=== PATIENT | female | born 1985 | race Caucasian/White ===

== ENCOUNTER 2016-08-29 07:04 | Day surgery (SDC) | payer BC ==
[2016-08-29] VITALS (13 sets, daily range): BP systolic 103–142; BP diastolic 55–85; PULSE 61–90; RESP 12–25; TEMP 97.2–98.2; O2SAT 94–100; Ht 160 cm; Wt 109.9 kg
[~2016-08-29] VITALS: Ht 160 cm; Wt 109.9 kg
[~2016-08-29 07:04] MED LIST: ALBU8.5H INH; LR 1,000 ML IV SCH; PRED20TA PO; TOPI100T43 PO; [UNRECOGNIZED DRUG - CODE] PO
--- OUTSIDE RECORDS SUMMARY | 2016-08-29 07:27 | XMS REPORT ---
Author Author Erik Wilcox Organization [employer] Address Unknown Phone Unavailable Care Team Providers Care Registration Rep Name Role Phone Erik Wilcox CP Unavailable Allergies, Adverse Reactions, Alerts Substance Reaction Event Type Verapamil HCl hives Drug Allergy Methotrexate hives Drug Allergy Lortab hives Drug Allergy Imitrex rash Drug Allergy Azithromycin hives Drug Allergy shell fish hives Non Drug Allergy Problems Problem Type Condition Code Onset Dates Condition Status Problem CARE LEVEL 4 CARE4 Active Problem (anxiety disorder, NOS) Anxiety state, unspecified 300.00 Active Problem () state, incidental (also ) V22.2 Active Assessment Sprain and strain of unspecified site of back 847.9 Active Problem Ankylosing spondylitis 720.0 Active Problem Cellulitis and abscess of buttock 682.5 Active Problem Moderate persistent asthma with acute exacerbation J45.41 Active Problem Unqualified visual loss, one eye 369.8 Active Problem Asthma, unspecified with status asthmaticus 493.91 Active Problem External hemorrhoids without mention of complication 455.3 Active Problem (GERD acid reflux) Esophageal reflux 530.81 Active Medications Medication Code System Code Instructions Start Date End Date Status Dosage Pro Air HFA [facility] 56458-[address]48 108 mg inhalation q 4-6 hrs prn Jan 17, 2016 2 puffs Proventil HFA [facility] [address]-47 108MCG/A Inhalation every 4 hrs prn 2 puffs as needed Triamcinolone Acetonide [facility] [address]-80 0.1 % Externally Twice a day September 29, 2015 1 application to affected area Benadryl [facility] [address]-18 25 MG Orally qhs prn 1 tablet Tylenol [facility] [address]-30 500 MG Orally every 6 hrs prn 1 tab(s) Topamax [facility] [address]-82 50 mg Orally Twice a day 1.5 tablet Flexeril [facility] [address]-61 10 mg Orally qhs as needed for spasm Feb 27, 2016 Mar 13, 2016 1 tablet HydrOXYzine HCl [facility] [address]-07 50 MG Orally q6 hours PRN Anxiety Jan 1-2 tablets Procedures Procedure Coding System Code Date Office visit estab lev 3 CPT-4 51319 Feb 27, 2016 Vital Signs Date/Time: Feb 27, 2016 Height 65 in Weight 225.0 lbs Temperature 98.0 F Cardiac Monitoring Heart Rate 67 /min Blood Pressure Diastolic 73 mm Hg Blood Pressure Systolic 108 mm Hg BMI 37.44 Index Results No Known Results Summary Purpose [employer] Submission
--- OUTSIDE RECORDS SUMMARY | 2016-08-29 07:30 | XMS REPORT ---
Author Frank Meyer Organization [employer] Address Unknown Phone Unavailable Care Team Providers Care [employer] Technology Teacher Name Role Phone Frank Varma CP Unavailable Allergies No Known Allergies Problems Problem Type Condition Code Onset Dates Condition Status Problem () state, incidental (also ) V22.2 Active Problem CARE LEVEL 4 CARE4 Active Problem Cellulitis and abscess of buttock 682.5 Active Problem External hemorrhoids without mention of complication 455.3 Active Problem Ankylosing spondylitis 720.0 Active Problem Asthma, unspecified with status asthmaticus 493.91 Active Problem (anxiety disorder, NOS) Anxiety state, unspecified 300.00 Active Problem (GERD acid reflux) Esophageal reflux 530.81 Active Problem Unqualified visual loss, one eye 369.8 Active Medications No Known Medications Results No Known Results Summary Purpose [employer] Submission
--- OUTSIDE RECORDS SUMMARY | 2016-08-29 07:31 | XMS REPORT | Referral Summary ---
Author Author [facility] Organization [facility] Address Unknown Phone Unavailable Care Team Providers Care Anthropology And Archeology Instructor Name Role Phone Naveen Cruz Primary Care Physician [phone] Encounter [facility] [id number] Date(s): 04/25/16 - 04/25/[address] [facility] [address] [facility] [address] [place], [place] [address] Discharge Diagnosis: Migraine with aura Discharge Diagnosis: Nausea Discharge Disposition: 01-Home or Self Care Attending Physician: Ernie Edwards MD Admitting Physician: Ernie Edwards MD Referring Physician: Ernie Edwards MD Vital Signs Most recent to 1 oldest [Reference Range]: Peripheral Pulse 60 bpm Rate [60-100 bpm] (04/25/16 8:08 AM) Blood Pressure 118/74 mmHg [90-140/60-90 mmHg] (04/25/16 8:08 AM) Problem List No data available for this section Allergies, Adverse Reactions, Alerts Substance Reaction Severity Status Azithromycin 5 Day Dose Active Pack1 Fish2 Active Lortab Active methotrexate Adverse Reaction Active 1HIVES 2SHELL FISH: HIVES, CANT BREATHE Medications albuterol CFC free 90 mcg/inh inhalation aerosol puffs, Inhalation, QID, 0 Refill(s) Start Date: 11/22/15 Status: Ordered Benadryl 0 Refill(s) Start Date: 11/22/15 Status: Ordered predniSONE Oral, Daily, 80mg, 0 Refill(s) Start Date: 04/25/16 Status: Ordered topiramate 100 mg oral tablet 100 mg 1 tabs, Oral, BID, # 180 tabs, 0 Refill(s), Pharmacy: [id number], 1 tabs Oral BID Start Date: 04/25/16 Status: Ordered Results No data available for this section Immunizations No data available for this section Procedures Procedure Date Related Diagnosis Body Site Acute cataract H/O tubal ligation Social History Social History Type Response Smoking Status Never smoker Assessment and Plan Extracted from: Title: Neurology follow up Author: Ernie Edwards MD Date: 04/25/16 Assessment/Plan 1. Migraine with aura: Increase Topamax to 100 mg twice a day Start Relpax as needed as an abortive agent She did have an allergic reaction to Imitrex with hives but was not allergic to Zomig. Does not appear to be a class effect. She knows to take Benadryl in case of developing hives. 2. Nausea: Continue Compazine 10mg TID PRN for nausea Time spent with the patient: 20min with greater than 50% of the office visit spent in counseling the patient, coordination of care, reviewing diagnostic studies, treatment options, follow up plan, and answering the patient's questions. Return to clinic in5 months Addendum Rizatriptan was preferred according to her plan. Rizatriptan will be used in stead of by heidy Edwards (Relpax) Ernie NOEL on April 25, 2016 08:30:42 [employer] PSYCHOLOGIST
--- OUTSIDE RECORDS SUMMARY | 2016-08-29 07:32 | XMS REPORT ---
Author Author [facility] - Organization Unknown Address Unknown Phone Unavailable Allergies, Adverse Reactions, Alerts * IV Contrast causes unknown. * Zithromax causes Urticaria (hives). * Iodine causes Adverse Reaction. * Methotrexate causes Adverse Reaction. * No Latex Allergy. * No Known Food Allergies. Problems No relevant problems exist. Procedures No relevant procedures performed. Medication Medication reconciliation has not been performed. Results LAB--CHEMISTRY from 03/21/2013 2:35 AMAnion Gap 6 (3-20 ) Albumin 3.8 g/dL (3.5-4.8 g/dL) Alkaline Phosphatase 61 U/L (26-104 U/L) ALT (SGPT) 36 U/L (14-54 U/L) AST (SGOT) 26 U/L (15-41 U/L) Bilirubin Total 0.6 mg/dL (0.2-1.2 mg/dL) BUN 20 mg/dL (4-20 mg/dL) Calcium 9.1 mg/dL (8.6-10.0 mg/dL) Chloride 107 mEq/L (99-109 mEq/L) CO2 24 mEq/L (22-32 mEq/L) Creatinine 0.92 mg/dL (0.44-1.03 mg/dL) eGFR >60 (>60- ) Globulin 2.6 g/dL (1.9-4.3 g/dL) Glucose 113 mg/dL H (70-100 mg/dL) Potassium 3.9 mEq/L (3.6-5.1 mEq/L) Sodium 137 mEq/L (136-144 mEq/L) Protein 6.4 g/dL (6.1-7.9 g/dL)
--- OUTSIDE RECORDS SUMMARY | 2016-08-29 07:32 | XMS REPORT ---
Author Frank Meyer Organization [employer] Address Unknown Phone Unavailable Care Team Providers Care Import Clerk Name Role Phone Frank Varma CP Unavailable Allergies No Known Allergies Problems Problem Type Condition Code Onset Dates Condition Status Assessment Intractable episodic cluster headache G44.011 Active Problem () state, incidental (also ) [...] visual loss, one eye 369.8 Active Medications Medication Code System Code Instructions Start Date End Date Status Dosage Flonase [facility] [address]-63 50 MCG/ACT Nasally Once a day Jan 14, 2015 1 spray in each nostril HydrOXYzine HCl [facility] [address]-11 50 MG Orally q6 hours PRN Anxiety Jan 1-2 tablets Zolmitriptan [facility] [address]-56 2.5 MG Nasally for acute headaches, may repeat dose x1 after 2 hr Jun 21, 2015 1 spray as needed Proventil HFA [facility] [address]-81 108 (90 Base) MCG/ACT Inhalation every 4 hrs Feb 03, 2015 2 puffs as needed Verapamil HCl [facility] [address]-38 80 mg Orally Three times a day Jun 23, 2015 1 tablet Benadryl [facility] [address]-26 25 mg PRN 1 tablet Results No Known Results Summary Purpose [employer] Submission
[2016-08-29] MEDS ORDERED: DIFL5DRO IO (07:58)
[2016-08-29] MEDS ORDERED: CEFAZOLIN 1 GRAM INJECTION IV ONE (08:00)
--- NOTE | 2016-08-29 08:35 | ANESPREOP ---
Anesthesia Record Date and Time DATE: 08/29/16 TIME: 08:33 Pre-Op Diagnosis BCC Proposed Surgical Procedure mohs- left side of nose NPO since: mIDNIGHT Allergies: Coded Allergies: acetaminophen (Verified Allergy, Unknown, hives, 08/29/16) hydrocodone (Verified Allergy, Unknown, hives, 08/29/16) methotrexate (Verified Allergy, Unknown, hives, 08/29/16) shellfish derived (Verified Allergy, Unknown, hives, 08/29/16) verapamil (Unverified Allergy, Unknown, 08/29/16) Ht/Wt/BMI Height: 5 ' 3.00 " Weight: 109.900 kg BMI: 42.9 kg/m2 Vital Signs Date Time Temp Pulse Resp B/P Pulse Ox O2 Delivery O2 Flow Rate FiO2 08/29/16 07:38 98.2 61 14 123/79 98 Medications Inpatient Medications Current Medications Medications (Trade) Dose Ordered Sig/Alberto Start Time Stop Time Status Last Admin Dose Admin Lactated Ringer's (Lactated Ringers) 1,000 ml @ 50 mls/hr Q20H 08/29/16 07:00 Fentanyl (Fentanyl) 25-50 MCG IV PUSH PRN NOT... PRN PRN 08/29/16 09:00 Midazolam HCl (Versed) 0.5-3 MG IV PUSH EVERY... Q10M PRN 08/29/16 09:00 Albuterol Sulfate (Proair HFA 90 mcg/actuation) 8.5 Gm Hfa.aer.ad, 1 PUFF INH DAILY PRN for ASTHMA, (Reported) Last Taken: on 08/28/16 0715 Cyclosporine (Cyclosporine) 100 Mg Capsule, 1 CAP PO BID, (Reported) Last Taken: on 08/28/16 2330 Difluprednate (Durezol) 5 Ml Drops, 1 DROP IO QID, (Reported) Last Taken: on 08/29/16 0530 Prednisone (Prednisone) 20 Mg Tablet, 1 TAB PO DAILY, (Reported) Last Taken: on 08/28/16 0800 Topiramate (Topiramate) 100 Mg Tablet, 1 TAB PO BID, (Reported) Last Taken: on 08/28/16 2330 Currently on Beta Thom: No Medical/Surgical History Anesthesia PMH: Reports: Arthritis, Asthma, Cancer (SKIN-NOSE ), Obesity, Pneumonia (HX. ), Denies: Anesthesia Reactions (NO AIRWAY ISSUES ), Clotting Problems, Malignant Hyperthermia, Renal Disease, Sleep Apnea Smoking Status: Never smoker Has pt. smoked today?: No Use Chewing Tobacco?: No Second Hand Exposure: No Substance Use Type: does not use Alcohol Intake: none HX of Last Menstrual Period: AUGUST 2016 Past Surgical History Orthopedic Surgeries: Yes - R KNEE SCOPE Abdominal Surgeries: Yes - SAURABH Genitourinary Surgeries: Cardiac Surgeries: Endocrine Surgeries: Reproductive Surgeries: Yes - TUBAL Neurological Surgeries: Ear Surgeries: Nose Surgeries: Throat Surgeries: Other Surgeries: Yes - L CATARACT, LEFT EYE LASER Anesthesia Adverse Reactions: FOUND none Family Hx of Anesthesia Advers: none Hx of Motion Sickness: No Pertinent Findings Test 08/29/16 07:51 Urine Test Negative (NEGATIVE) EKG Rhythm: Sinus Rhythm Physical Exam Respiratory: Lungs clear Cardiovascular: FOUND Regular rate, rhythm Airway Assessment Mallampati Score: II TMD: 3 Fingerbreadths Neck Extension: Good Overall Assessment: No Airway Concerns ASA: 2 Plan Anesthesia Plan: MAC Discussion Discussed risks/options/alternatives of anesthesia and questions answered. Patient consents. Nursing pain assessment noted. Attestation Statement Prior to the delivery of any anesthetic medication, I examined the patient, developed the plan, obtained the patient's consent and discussed the risk and benefits of the procedure with the patient/guardian. CABRERA BARAHONA CRNA Aug 29, 2016 08:34
[2016-08-29] MEDS ORDERED: MIDAZOLAM 5mg/5ml INJECTION IV PRN (09:00)
[2016-08-29] MEDS ORDERED: FENTANYL 100mcg/2ml INJECTION IV PRN (09:00)
[2016-08-29] MEDS ORDERED: MIDAZOLAM 2mg/2ml INJECTION ONE (09:39)
[2016-08-29] MEDS ORDERED: PROPOFOL 200mg 20 ML IV ONE (09:57)
--- NOTE | 2016-08-29 10:04 | NUR ---
0837 DR. SPENCER TO PT'S ROOM TO INTERVIEW AND MINNIE PT. IV ANTIBIOTIC STARTED PER DR. SPENCER'S ORDER. VERSED ADMINISTERED IV PER DR. SPENCER'S ORDER. PT. ANXIOUS AND TEARFUL. TIME OUT PERFORMED BY SURGICAL TEAM AT 0845. SURGICAL SITE PREPPED AND DRAPED BY DR. SPENCER USING 3% CHLOROXYLENOL. 4.5CC 1%LIDOCAINE WITH EPI 1:100,000 INJECTED INTO SURGICAL SITE. BOVIE SETTING AT 15. LESION EXCISED AT 0855 AND TAKEN TO LAB FOR PATHOLOGY. SPECIMEN LABELED FOLLOWS: [id number] 1. BASAL CELL CARCINOMA LEFT ALAR GROOVE - NEEDLE AT 1200. PROCEDURE ENDED AT 0857 . PT. TOLERATED PROCEDURE WELL.
--- NOTE | 2016-08-29 10:18 | ANESPO ---
Post-Op Note Date 08/29/16 Time: 10:18 Status Pt Participated in Evaluation: Pt participated in person Vital Signs Date Time Temp Pulse Resp B/P Pulse Ox O2 Delivery O2 Flow Rate FiO2 08/29/16 10:13 97.2 81 20 108/62 97 Room Air Respiratory Function: Airway patent Cardiovascular Function: Regular pulse Telemetry Pattern: SR Mental Status: Alert/oriented Pain Level Intensity: 0 Hydration: Taking po fluids Complications during Recovery None apparent Follow-Up Instructions Instructions Per Surgeon CABRERA BARAHONA [facility] Aug 29, 2016 10:18
[2016-08-29] MEDS ORDERED: CEPH-583 PO (10:25)
[2016-08-29] MEDS ORDERED: ACET1TAB12 PO (10:25)
--- NOTE | 2016-08-29 10:25 | PDPROCED ---
Procedure Note Date 08/29/16 Procedure Name Mohs excision BCC left alar groove with local rotation flap closure: Lesion size 0.7 cm, excision and final defect 1.1 cm Procedure Detail Preop dx: BCC left alar groove Postop dx: Same Anesthesia: MAC Case: Clean EBL: Less than 15 ml Complications: None YANELIS SPENCER MD Aug 29, 2016 10:25
[2016-08-29] MEDS ORDERED: ONDANSETRON 4mg/2ml INJECTION IV PRN (10:30)
[2016-08-29] MEDS ORDERED: ATROPINE 1mg/10ml Syringe IV PRN (10:30)
[2016-08-29] MEDS ORDERED: BALANCED SALT SOLUTION 15ml IRRIGATION IO ONE (16:45)
--- NOTE | 2016-08-29 21:38 | OPNOTEF ---
DATE OF SURGERY 08/29/2016 SURGEON Tegan Gonzalez MD PREOPERATIVE DIAGNOSIS Basal cell carcinoma, left alar groove. POSTOPERATIVE DIAGNOSIS Basal cell carcinoma, left alar groove. OPERATION Mohs excision of basal cell carcinoma of left alar groove with local rotation flap closure. Lesion size 0.7 cm, excision and final defect 1.1 cm. ANESTHESIA MAC INDICATIONS The patient is a 30-year-old woman who was referred by NOHEMY Moran from Dr. Maravilla's office for a known basal cell carcinoma of the left alar groove. The patient first noticed a spot on her nose approximately six to eight months ago. It initially looked like a blood blister and would bleed without her touching it. She saw NOHEMY Moran on 07/17/2016 and a punch biopsy was performed. Pathology revealed a basal cell carcinoma. The patient denies any significant sunburns as a child and although she has occasionally used a tanning bed, was always careful to cover her face with a towel. The patient does have high anxiety and wants sedation for any procedure. Mother did have a history of melanoma of her nose. On exam, she had an erythematous crusted biopsy site of 0.7 cm in the left alar groove. In detailed discussion with the patient preoperatively, the risks, benefits and alternatives of Mohs excision of this lesion and closure were reviewed including, but not limited to, bleeding, infection, poor or keloid scarring, partial and/or complete loss of the flap and/or graft, residual and/or recurrent disease. Due to the patient's significant concern with scarring, we specifically discussed the most likely reconstructive procedures and she was aware that the final determination would be made at the time of surgery dependent upon the resection necessary. PROCEDURE The patient was marked preoperatively and then, after suitable IV sedation, the face was prepped and draped in the usual sterile manner. Of note, she received 1 g Ancef preoperatively and wore sequential stockings throughout. The involved area was then infiltrated with 1% lidocaine with epinephrine. After strict wait for hemostasis, the lesion was excised and handed off with a marking at the 12 o'clock margin. Subsequent Mohs pathologic evaluation revealed clear margins. The patient was then brought to the operating room and again prepped and draped in the usual sterile manner. It was deemed that primary closure alone would result in significant asymmetry of the nostrils. Therefore, a local rotation flap was then designed, incised, rotated into the defect and closed in two layers using interrupted buried sutures of 5-0 Vicryl and interrupted 6-0 nylon. Of note, hemostasis throughout was obtained using electrocautery. Benzoin and Steri-Strips were applied as well as a dry sterile dressing and Mefix tape. The patient was then brought to the recovery room in stable condition. Estimated blood loss was less than 50 mL. The case was clean. Specimens: Basal cell carcinoma of the left alar groove. MTDD
== END 2016-08-29 11:01 | disposition home or self-care (01) ==
LOC: NSC 07:04
PROVIDERS: ATTEND Surgery Plastic and Reconstructive Surgery
DX: C44.311 Basal cell carcinoma of skin of nose (principal); Z80.8 Family history of malignant neoplasm of other organs or systems; Z79.899 Other long term (current) drug therapy
CPT/HCPCS: 14060; 81025; 82948; J0690; J2250; J2704; J3010; J7120